=== PATIENT | male | born 1965 | race Caucasian/White ===

== ENCOUNTER 2017-07-23 14:16 | Emergency (ER) | payer MEDICARE | END 2017-07-23 15:41 | disposition home or self-care (01) | LOC: D.ER 14:16 | DX: S82.831A Other fracture of upper and lower end of right fibula, initial encounter for closed fracture (principal); V89.2XXA Person injured in unspecified motor-vehicle accident, traffic, initial encounter; Y93.01 Activity, walking, marching and hiking; Y92.410 Unspecified street and highway as the place of occurrence of the external cause ==